=== PATIENT | male | born 1975 | race African-American/Black ===

== ENCOUNTER 2020-09-04 10:56 | Emergency (ER) | payer SELFPAY ==
[~2020-09-04] VITALS: Ht 188 cm; Wt 113.0 kg
[2020-09-04] MEDS ORDERED: HALOPERIDOL LACTATE 5MG/ML VIAL IM STA (11:30)
[2020-09-04 11:51] LABS: BASOPHILS % 0.6 % (0.0-2.0); EOSINOPHILS % 0.6 % (0.0-5.0); HEMATOCRIT. 44.5 % (42.0-52.0); HEMOGLOBIN. 14.6 g/dL (14.0-18.0); LYMPHOCYTES % 31.4 % (20.0-50.0); MEAN CORPUSCULAR HEMOGLOBIN 31.7 pg (28.0-32.0); MEAN CORPUSCULAR VOLUME 96.6 fL (80.0-94.0); NEUTROPHILS % 55.4 % (40.0-76.0); PLATELET 212 x1000/uL (130-400); RED CELL DISTRIBUTION WIDTH 12.9 % (11.6-14.6)
[2020-09-04 11:56] LABS: CHLORIDE 109 mEq/L (98-107)
[2020-09-04 12:02] LABS: ETHANOL BLOOD 113 mg/dL
[2020-09-04 12:08] LABS: CREATINE KINASE 141 IU/L (39-308)
[2020-09-04 15:00] VITALS: BP 136/88
== END 2020-09-04 16:53 | disposition home or self-care (01) ==
LOC: ER 10:56
DX: F19.129 Other psychoactive substance abuse with intoxication, unspecified (principal); R41.82 Altered mental status, unspecified
CPT/HCPCS: 36415; 80053; 80320; 82550; 85025; 99284; G0480